=== PATIENT | female | born 1965 ===

== ENCOUNTER 2021-12-04 20:35 | Emergency (ER) | payer SELFPAY ==
[2021-12-04 20:47] VITALS: BP 137/87; PULSE 105
[2021-12-04] MEDS: Potassium Chloride 10 MEQ Tab.ER PO ONE (21:35)
[2021-12-04] MEDS: Bacitracin/Polymyxin B Ophth Oint 3.5 GM Tube EYEBOTH SCH (21:35)
[2021-12-04] MEDS: Iopamidol 755 Mg/ML 100 ML Bottle IVPUSH ONE (21:55)
== END 2021-12-04 22:55 | disposition home or self-care (01) ==
LOC: CC.ED 20:35
DX: H10.33 Unspecified acute conjunctivitis, bilateral (principal); R05.9 Cough, unspecified; E87.6 Hypokalemia; E83.42 Hypomagnesemia; R74.8 Abnormal levels of other serum enzymes; F17.200 Nicotine dependence, unspecified, uncomplicated; Z88.5 Allergy status to narcotic agent; Z91.011 Allergy to milk products; Z72.0 Tobacco use; Z20.822 Contact with and (suspected) exposure to COVID-19
CPT/HCPCS: 71275; 99284; 99284-25; A9270-GY; Q9967; U0002